=== PATIENT | male | born 1960 | race Caucasian/White ===

== ENCOUNTER 2025-09-19 12:42 | Emergency (ER) | payer OTHER, SELFPAY ==
[2025-09-19 12:57] VITALS: BP 126/83; PULSE 77; RESP 18; TEMP 36.8; O2SAT 100
[2025-09-19 13:16] LABS: EDSTREPNEGPOS1 Negative (Negative)
--- NOTE | 2025-09-19 13:31 | ED.URI ---
HPI - URI/Sore Throat General Chief Complaint: Upper Respiratory Infection Stated Complaint: Sore throat Time Seen by Provider: 09/19/25 13:15 Source: patient and RN notes reviewed Mode of arrival: ambulatory Limitations: no limitations History of Present Illness HPI Narrative: 64-year-old male patient presents Express Care complaining of sore throat, body aches, chills and congestion for approximally 3 days. Patient denies any other upper respiratory symptoms, cough, nausea vomiting, chest pain, difficulty breathing or in her symptoms. Patient reports that hurts to swallow. He rates the pain 8 out of 10. Patient denies any fevers. Patient denies any significant past medical history. Patient took a dose of Tylenol without relief. Related Data Allergies Allergy/AdvReac Type Severity Reaction Status Date / Time No Known Allergies Allergy Verified 09/19/25 12:56 Review of Systems Review of Systems: CONSTITUTIONAL: Denies fever, or sweats. Positive body aches and chills. EYES: Denies visual changes, redness, or discharge. ENT: Denies rhinorrhea, difficulty clearing secretions, excessive drooling, or otalgia. Positive for sore throat congestion. CARDIOVASCULAR: Denies chest pain, palpitations, or edema. RESPIRATORY: Denies cough or dyspnea. GASTROINTESTINAL: Denies abdominal pain, nausea, vomiting, or diarrhea. GENITOURINARY: Denies dysuria or hematuria. SKIN: Denies rash or itching. MUSCULOSKELETAL: Denies back pain, joint pain, or myalgia. NEUROLOGIC: Denies headache, numbness, or weakness. PSYCHIATRIC: Denies anxiety or depression. All other systems reviewed are negative, except as documented in HPI. PMFSH Comments At the time of my signature, I reviewed and agree with the nursing past medical, surgical, social, and family history. There is no relevant family history pertinent to the patient complaint. Exam Narrative: GENERAL: This is a well-nourished, well-developed adult, in no apparent distress. They are non ill-appearing, nontoxic appearing. HEAD: normocephalic, atraumatic. EYES: Sclera clear/white. Conjunctiva normal. Vision is grossly intact. Extraocular movements intact EARS: External ears normal, auditory canals clear and without drainage, TMs normal without perforation. Hearing grossly intact. NOSE: External nose normal with no obvious nasal discharge, nasal turbinates without redness, no rhinorrhea. THROAT: Mucous membranes moist, posterior pharynx erythematous. No exudate. Uvula midline. NECK: Neck supple, mild cervical lymphadenopathy, no masses or thyromegaly. CARDIOVASCULAR: Regular rate and rhythm without murmurs, gallops, or rubs. RESPIRATORY: Clear to auscultation. Breath sounds equal bilaterally. No wheezes, rales, or rhonchi. SKIN: warm, Dry, intact with no suspicious lesions or rash, good texture and turgor. NEURO: awake, alert, and oriented to person, place and time. There were no obvious focal neurologic abnormalities. EXTREMITIES: No joint tenderness, effusion, or edema noted. BACK: Nontender without deformity. Course Course Emergency Course: Portions of this record may have been created with voice recognition software Level of Care: Express Care Visit Vital Signs Vital signs: Vital Signs Temperature 98.2 F 09/19/25 12:57 Pulse Rate 77 09/19/25 12:57 Respiratory Rate 18 09/19/25 12:57 Blood Pressure 126/83 09/19/25 12:57 Pulse Oximetry 100 09/19/25 12:57 Oxygen Delivery Room Air 09/19/25 12:57 Temperature 98.2 F 09/19/25 12:57 Pulse Rate 77 09/19/25 12:57 Respiratory Rate 18 09/19/25 12:57 Blood Pressure 126/83 09/19/25 12:57 Pulse Oximetry 100 09/19/25 12:57 Oxygen Delivery Room Air 09/19/25 12:57 Reviewed MDM - URI/Sore Throat MDM Narrative Medical decision making narrative: Patient refused viral swabs. Patient agreed to strep testing, rapid strep is negative. A throat culture is pending. Symptoms likely viral in etiology. The patient sore throat pain will give 1 time dose of dexamethasone, sent to pharmacy. Discussed supportive care. Discussed physical exam findings. Advised supportive measures and signs/symptoms to go to the ER. Pt is appropriate for outpt treatment and f/u. Differential Diagnosis Differential diagnosis: Likely upper respiratory infection, otitis media, sinusitis, viral infection and pharyngitis Lab Data Attestation: I reviewed the patient's lab results. Labs: Lab Results 09/19/25 Range/Units 13:05 POC Grp A Strep Screen Negative (Negative) Critical Care Time Critical Care Time Critical Care Time: No Discharge Plan Discharge Clinical Impression: Pharyngitis Qualifiers: Pharyngitis/tonsillitis etiology: unspecified etiology Qualified Code(s): J02.9 - Acute pharyngitis, unspecified Patient Disposition: Home Condition: Stable Instructions: Pharyngitis (ED) Additional Instructions: Your rapid strep swab was negative today at [facility]. You will be notified in a few days if the culture comes back positive for strep, and appropriate antibiotics will be called in for you at that time. Your symptoms are likely due to a viral illness, which is not treated with antibiotics. Viral symptoms can be present for up to 7-10 days. Take Tylenol or Motrin as needed for fever or pain. Follow instructions on the bottle. Rest and stay hydrated. Warm peppermint tea is also soon for a sore throat. Salt water gargle rinses and spit as needed for sore throat. Follow up with your PCP in 5-7 days if symptoms are not improving. Go to the ER immediately if you develop chest pain, uncontrollable fevers, difficulty breathing or swallowing, vomiting, or any serious concerns. Patient Language: Indonesian Prescriptions: New dexamethasone 2 mg tablet 10 mg PO ONCE 1 Days Qty: 5 0RF Follow-up/Referrals: PHYSICIAN,INTEGRITY SPECIALIST [Primary Care Provider, Internal Medicine] Time of Disposition: 13:22
--- OUTSIDE RECORDS SUMMARY | 2025-09-19 13:43 | XMS_ITS | Clinical Summary ---
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 Name Role Phone Parvez Barrios MD Primary Care Provider [phone] Social History Tobacco Use Types Packs/Day Years Used Date Smoking Tobacco: Never Assessed Sex and Gender Information Value Date Recorded Sex Assigned at Not on file Legal Sex Male 1:19 PM CDT Gender Identity Not on file Sexual Orientation Not on file Plan of Treatment Health Maintenance Due Date Last Done Comments Hepatitis C Virus (HCV) Screening 1961 TdaP Immunization 1961 Cologuard 2006 Colonoscopy 2006 Colorectal Cancer Screening 2006 Immunochemical Fecal Occult Blood 2006 Pneumococcal Immunization (5 0+ years) (1 of 1 - PCV) 2011 Zoster Immunization (1 of 2) 2011 Influenza Immunization (#1) 2025 SARS-COV-2 Immunization ( - 2023- season) 2025 Respiratory Syncytial Virus (RSV) Immunization (Adult) (1 - 1-dose 75+ series) 2036 Hepatitis B Immunization Aged Out No longer eligible based on patient's age to complete this topic Human Papillomavirus (HPV) Immunization Aged Out No longer eligible b ased on patient's age to complete this topic Meningococcal Immunization (ACWY) Aged Out No longer eligible based on patient's age to complete this topic Rotavirus Immunization Aged Out No lo nger eligible based on patient's age to complete this topic Insurance [facility] Care Teams Punchboard Filling Machine Operator Relationship Specialty Start Date End Date Parvez Barrios MD [address] [address] PCP - General Family Medicine 09/02/16
== END 2025-09-19 13:25 | disposition home or self-care (01) ==
DX: J02.9 Acute pharyngitis, unspecified (principal)
CPT/HCPCS: 87081; 87880; 99213; G0463